=== PATIENT | female | born 1985 | race Caucasian/White ===

== ENCOUNTER 2016-10-29 18:56 | Emergency (ER) | payer OTHER ==
[~2016-10-29] VITALS: Ht 154.9 cm; Wt 111.7 kg
[~2016-10-29 18:56] MED LIST: AFRIN,GENASAL D15 ML BOTH NARES; ALBUTEROL SULF8.5 GM IH; AZITHROMYCIN250 MG1 PO; CLONAZEPAM1 MG PO; ENDOCET 5-3251 EACH PO; FLEXERIL10 MG PO; FLEXERIL5 MG PO; FLINTSTONES1 EACH PO; IBUPROFEN800 MG PO; KEFLEX500 MG PO; LAMOTRIGINE100 MG PO; LISINOPRIL-HCT1 EACH PO; MOTRIN600 MG PO; NAPROSYN500 MG PO; NEURONTIN300 MG PO; NON-ASPIRIN EX500 M2 PO; NORCO 5/3251 TABLET PO; PAROXETINE HCL20 MG PO; PERCOCET 5/31 TABLET PO; PRAZOSIN HCL1 MG PO; PREDNISONE20 MG PO; PRENATAL TABLE1 EACH PO; ROBITUSSIN AC,T10 ML PO; VENTOLIN HFA18 GM IH
[2016-10-29] MEDS ORDERED: FIORICET 50-301 EACH PO (22:32)
[2016-10-29] MEDS ORDERED: FLEXERIL5 MG PO (22:32)
[2016-10-29 22:47] VITALS: BP 138/78
== END 2016-10-29 22:49 | disposition home or self-care (01) ==
LOC: EME 18:56 → EXP 18:56
DX: G44.209 Tension-type headache, unspecified, not intractable (principal); I10 Essential (primary) hypertension; F17.200 Nicotine dependence, unspecified, uncomplicated; Z91.040 Latex allergy status; Z88.6 Allergy status to analgesic agent
CPT/HCPCS: 99281; 99284

== ENCOUNTER 2016-12-03 18:57 | Emergency (ER) | payer OTHER ==
[~2016-12-03] VITALS: Ht 154.9 cm; Wt 110.0 kg
[~2016-12-03 18:57] MED LIST changes: +FIORICET 50-301 EACH PO
[2016-12-03] MEDS ORDERED: GABAPENTIN600 MG PO (19:19)
[2016-12-03] MEDS ORDERED: EFFEXOR XR75 MG PO (19:19)
[2016-12-03] MEDS ORDERED: KLONOPIN1 MG PO (19:20)
[2016-12-03] MEDS ORDERED: LITHIUM CARBON600 MG PO (19:21)
[2016-12-03] MEDS ORDERED: MOBIC7.5 MG PO (19:21)
[2016-12-03 19:52] LABS: HEMATOCRIT 37.7 % (36.0-46.0); MCH 31.3 PG (29.0-34.0); MCHC 32.9 G/DL (30.0-36.0); MCV 95.2 FL (83-99); MEAN PLAT.VOLUME 10.9 uM^3 (9.5-12.4); RBC DIS.WIDTH-CV 13.5 % (11.8-14.6); RBC DIS.WIDTH-SD 44.5 % (39-53); RED BLOOD COUNT 3.96 M/uL (3.80-5.20)
[2016-12-03 19:55] LABS: PLATELET COUNT 143 K/uL (156-360); WHITE BLOOD COUNT 4.6 K/uL (4.1-10.2)
[2016-12-03 20:02] LABS: CHLORIDE 110 mEq/L (99-109); POTASSIUM 3.7 mEq/L (3.7-5.4); SODIUM 142 mEq/L (136-147)
[2016-12-03 20:05] LABS: GLUCOSE 96 mg/dL (70-99)
[2016-12-03 20:06] LABS: ANION GAP 7 MEQ/L (2-14); TOTAL BILIRUBIN 0.3 mg/dL (0.0-1.0)
[2016-12-03 20:07] LABS: SERUM ETHYL ALCOHOL < 10 mg/dL
[2016-12-03 20:08] LABS: ALKALINE PHOSPHATASE 59 IU/L (3-129); GFR ESTIMATE (CALCULATED) > 59 mL/min/
[2016-12-03 20:09] LABS: UREA NITROGEN (BUN) 9 mg/dL (9-23)
[2016-12-03] MEDS ORDERED: PRAZOSIN HCL2 MG PO (21:24)
[2016-12-03 22:43] VITALS: BP 125/85
== END 2016-12-03 22:44 | disposition home or self-care (01) ==
LOC: EME 18:57
PROVIDERS: Emergency Medicine
DX: F31.32 Bipolar disorder, current episode depressed, moderate (principal); F60.3 Borderline personality disorder; F17.200 Nicotine dependence, unspecified, uncomplicated; Z91.040 Latex allergy status; Z88.5 Allergy status to narcotic agent; Z91.048 Other nonmedicinal substance allergy status; J45.909 Unspecified asthma, uncomplicated; I10 Essential (primary) hypertension
CPT/HCPCS: 80053; 81003; 85027; 90837; 99281; 99284; G0480; J1630; J2250

== ENCOUNTER 2017-01-02 15:31 | Emergency (ER) | payer OTHER ==
[~2017-01-02] VITALS: Ht 152.4 cm; Wt 108.0 kg
[~2017-01-02 15:31] MED LIST changes: +EFFEXOR XR75 MG PO; +GABAPENTIN600 MG PO; +KLONOPIN1 MG PO; +LITHIUM CARBON600 MG PO; +MOBIC7.5 MG PO; +PRAZOSIN HCL2 MG PO
[2017-01-02 16:17] LABS: CHLORIDE 109 mEq/L (99-109); SODIUM 142 mEq/L (136-147)
[2017-01-02 16:18] LABS: GLUCOSE 85 mg/dL (70-99)
[2017-01-02 16:20] LABS: ANION GAP 9 MEQ/L (2-14)
[2017-01-02 16:22] LABS: GFR ESTIMATE (CALCULATED) > 59 mL/min/
[2017-01-02 16:23] LABS: UREA NITROGEN (BUN) 10 mg/dL (9-23)
[2017-01-02 16:30] LABS: QUANTITATIVE HCG < 4.0 MIU/ML
[2017-01-02 16:32] LABS: HEMATOCRIT 40.5 % (36.0-46.0); MCH 31.6 PG (29.0-34.0); MCHC 33.3 G/DL (30.0-36.0); MCV 94.8 FL (83-99); MEAN PLAT.VOLUME 10.6 uM^3 (9.5-12.4); RBC DIS.WIDTH-CV 12.7 % (11.8-14.6); RBC DIS.WIDTH-SD 44.2 % (39-53); RED BLOOD COUNT 4.27 M/uL (3.80-5.20)
[2017-01-02 16:35] LABS: PLATELET COUNT 228 K/uL (156-360); WHITE BLOOD COUNT 7.8 K/uL (4.1-10.2)
[2017-01-02] MEDS ORDERED: MOTRIN800 MG PO (18:14)
[2017-01-02 18:58] VITALS: BP 127/90
== END 2017-01-02 18:30 | disposition home or self-care (01) ==
LOC: EME 15:31
PROVIDERS: Emergency Medicine
DX: S00.83XA Contusion of other part of head, initial encounter (principal); S00.412A Abrasion of left ear, initial encounter; Y04.8XXA Assault by other bodily force, initial encounter; Y07.03 Male partner, perpetrator of maltreatment and neglect; J45.909 Unspecified asthma, uncomplicated; F31.9 Bipolar disorder, unspecified; I10 Essential (primary) hypertension; K21.9 Gastro-esophageal reflux disease without esophagitis; F17.200 Nicotine dependence, unspecified, uncomplicated
CPT/HCPCS: 70450; 70486; 80048; 84702; 85027; 99281; 99284

== ENCOUNTER 2017-03-02 19:03 | Emergency (ER) | payer OTHER ==
[~2017-03-02] VITALS: Ht 152.4 cm; Wt 106.8 kg
[~2017-03-02 19:03] MED LIST changes: +MOTRIN800 MG PO
[2017-03-02] MEDS ORDERED: PREDNISONE10 MG PO (19:27)
[2017-03-02 19:52] VITALS: BP 138/89
== END 2017-03-02 19:54 | disposition home or self-care (01) ==
LOC: EME 19:03
DX: M54.42 Lumbago with sciatica, left side (principal); M62.838 Other muscle spasm; F17.200 Nicotine dependence, unspecified, uncomplicated
CPT/HCPCS: 99281; 99284; J1100

== ENCOUNTER 2017-09-08 22:07 | Emergency (ER) | payer OTHER ==
[~2017-09-08] VITALS: Ht 152.4 cm; Wt 108.0 kg
[~2017-09-08 22:07] MED LIST changes: +PREDNISONE10 MG PO
[2017-09-08 23:39] LABS: HEMATOCRIT 36.7 % (36.0-46.0); MCHC 33.8 G/DL (30.0-36.0); MCV 94.6 FL (83-99); MEAN PLAT.VOLUME 11.2 uM^3 (9.5-12.4); PLATELET COUNT 195 K/uL (156-360); RBC DIS.WIDTH-CV 12.5 % (11.8-14.6); RBC DIS.WIDTH-SD 43.8 % (39-53); RED BLOOD COUNT 3.88 M/uL (3.80-5.20); WHITE BLOOD COUNT 9.3 K/uL (4.1-10.2)
[2017-09-08 23:49] LABS: ADD MIUA? YES; BILIRUBIN NEGATIVE; BLOOD NEGATIVE; COLOR YELLOW ((YELLOW)); GLUCOSE (STRIP) NEGATIVE; KETONES NEGATIVE; LEUKOCYTES NEGATIVE; NITRITE NEGATIVE; PROTEIN (STRIP) 30; SPECIFIC GRAVITY 1.024 (1.000-1.030); UROBILINOGEN 0.2 MG/DL (0.2-1.0)
[2017-09-08 23:51] LABS: CHLORIDE 110 mEq/L (99-109); POTASSIUM 3.9 mEq/L (3.7-5.4); SODIUM 143 mEq/L (136-147)
[2017-09-08 23:53] LABS: GLUCOSE 83 mg/dL (70-99)
[2017-09-08 23:54] LABS: ANION GAP 9 MEQ/L (2-14)
[2017-09-08 23:55] LABS: TOTAL BILIRUBIN 0.3 mg/dL (0.0-1.0)
[2017-09-08 23:57] LABS: ALKALINE PHOSPHATASE 59 IU/L (3-129); GFR ESTIMATE (CALCULATED) > 59 mL/min/
[2017-09-08 23:58] LABS: UREA NITROGEN (BUN) 17 mg/dL (9-23)
[2017-09-09 00:10] LABS: AMORPHOUS URATES CRYSTALS 3+; BACTERIA NONE SEEN /HPF; CRYSTALS PRESENT; EPITHELIAL CELLS 1+ /HPF; MUCUS 1+ /LPF; RED BLOOD CELLS NONE SEEN /HPF (0-5); UCUL ADDED? NO; WHITE BLOOD CELLS NONE SEEN /HPF (0-5)
[2017-09-09 00:11] LABS: QUANTITATIVE HCG < 4.0 MIU/ML
[2017-09-09 02:16] VITALS: BP 111/78
== END 2017-09-09 02:16 | disposition home or self-care (01) ==
LOC: EXP 22:07 → EME 22:07 → EXP 09-09 02:16
DX: N83.201 Unspecified ovarian cyst, right side (principal); R10.31 Right lower quadrant pain; J45.909 Unspecified asthma, uncomplicated; I10 Essential (primary) hypertension; F32.9 Major depressive disorder, single episode, unspecified; K21.9 Gastro-esophageal reflux disease without esophagitis; F41.9 Anxiety disorder, unspecified; F43.10 Post-traumatic stress disorder, unspecified; Z91.040 Latex allergy status; Z88.8 Allergy status to other drugs, medicaments and biological substances; Z87.891 Personal history of nicotine dependence
CPT/HCPCS: 74176; 80053; 81003; 84443; 84702; 85027; 99281; 99284

== ENCOUNTER 2017-09-20 18:10 | Emergency (ER) | payer OTHER ==
[~2017-09-20] VITALS: Ht 152.4 cm; Wt 110.5 kg
[2017-09-20 19:57] LABS: EOSINOPHIL COUNT 0.1 K/uL (0-0.3); HEMATOCRIT 39.7 % (36.0-46.0); IMMATURE GRANULOCYTE (%) 0.4 % (0.0-0.7); INSTRUMENT ABS NEUTROPHIL CT 7.5 K/uL; LYMPHOCYTE COUNT 2.1 K/uL (1.0-2.8); MCH 31.7 PG (29.0-34.0); MCHC 33.2 G/DL (30.0-36.0); MCV 95.2 FL (83-99); MEAN PLAT.VOLUME 10.6 uM^3 (9.5-12.4); MONOCYTE (%) 6.2 % (3-12); MONOCYTE COUNT 0.7 K/uL (0-0.8); NEUTROPHIL (%) 72.1 % (45-76); NEUTROPHIL COUNT 7.5 K/uL (1.8-6.4); PLATELET COUNT 246 K/uL (156-360); RBC DIS.WIDTH-CV 12.7 % (11.8-14.6); RED BLOOD COUNT 4.17 M/uL (3.80-5.20); WHITE BLOOD COUNT 10.4 K/uL (4.1-10.2)
[2017-09-20 20:06] LABS: CHLORIDE 110 mEq/L (99-109); POTASSIUM 3.7 mEq/L (3.7-5.4); SODIUM 141 mEq/L (136-147)
[2017-09-20 20:08] LABS: GLUCOSE 92 mg/dL (70-99)
[2017-09-20 20:09] LABS: ANION GAP 7 MEQ/L (2-14)
[2017-09-20 20:12] LABS: GFR ESTIMATE (CALCULATED) > 59 mL/min/
[2017-09-20 20:13] LABS: UREA NITROGEN (BUN) 8 mg/dL (9-23)
[2017-09-20] MEDS ORDERED: INDOCIN50 MG PO (22:22)
[2017-09-20] MEDS ORDERED: AUGMENTIN875 MG PO (22:22)
[2017-09-20 22:30] VITALS: BP 139/88
== END 2017-09-20 22:30 | disposition home or self-care (01) ==
LOC: EME 18:10
PROVIDERS: Physician Assistant
DX: K02.9 Dental caries, unspecified (principal); K04.7 Periapical abscess without sinus; Z87.891 Personal history of nicotine dependence; Z88.5 Allergy status to narcotic agent
CPT/HCPCS: 80048; 83605; 85025; 86735 90; 87040; 99281; 99284; J1100; J1885; J3010; J7030

== ENCOUNTER 2018-03-17 20:17 | Emergency (ER) | payer OTHER ==
[~2018-03-17] VITALS: Ht 152.4 cm; Wt 103.1 kg
[~2018-03-17 20:17] MED LIST changes: +AUGMENTIN875 MG PO; +INDOCIN50 MG PO
[2018-03-17 20:19] VITALS: BP 106/79
== END 2018-03-17 23:40 | disposition left against medical advice (07) ==
LOC: EME 20:17
DX: M54.5 Low back pain (principal); Z53.21 Procedure and treatment not carried out due to patient leaving prior to being seen by health care provider

== ENCOUNTER 2018-04-07 04:11 | Emergency (ER) | payer OTHER ==
[~2018-04-07] VITALS: Ht 152.4 cm; Wt 99.3 kg
[2018-04-07] MEDS ORDERED: DIFLUCAN150 MG PO (05:31)
[2018-04-07] MEDS ORDERED: PERCOCET 7.51 TABLET PO (05:31)
[2018-04-07] MEDS ORDERED: KEFLEX500 MG PO (05:31)
[2018-04-07] MEDS ORDERED: MOTRIN600 MG PO (05:31)
[2018-04-07 06:17] VITALS: BP 135/90
== END 2018-04-07 06:20 | disposition home or self-care (01) ==
LOC: EME → EDBD 04:11 → EME 04:11
PROC: 0HQNXZZ Repair Left Foot Skin, External Approach (ICD-10-PCS; principal; 2018-04-07)
PROC: 3E0234Z Introduction of Serum, Toxoid and Vaccine into Muscle, Percutaneous Approach (ICD-10-PCS; 2018-04-07)
DX: S92.512B Displaced fracture of proximal phalanx of left lesser toe(s), initial encounter for open fracture (principal); S91.312A Laceration without foreign body, left foot, initial encounter; W26.0XXA Contact with knife, initial encounter; W22.8XXA Striking against or struck by other objects, initial encounter; Y93.G1 Activity, food preparation and clean up; Z23 Encounter for immunization; F17.200 Nicotine dependence, unspecified, uncomplicated
CPT/HCPCS: 73630; 99281; 99284; J0690